=== PATIENT | female | born 1960 | race Caucasian/White ===

== ENCOUNTER 2017-07-09 19:26 | Emergency (ER) | payer OTHER ==
[~2017-07-09] VITALS: Ht 175.3 cm; Wt 73.1 kg
[2017-07-09] MEDS ORDERED: VALIUM5 MG PO (22:05)
[2017-07-09] MEDS ORDERED: NAPROXEN500 MG PO (22:05)
[2017-07-09] MEDS ORDERED: PERCOCET 5/31 TABLET PO (22:05)
[2017-07-09 22:37] VITALS: BP 133/62
== END 2017-07-09 22:38 | disposition home or self-care (01) ==
LOC: EME 19:26
DX: S16.1XXA Strain of muscle, fascia and tendon at neck level, initial encounter (principal); M25.511 Pain in right shoulder; V43.52XA Car driver injured in collision with other type car in traffic accident, initial encounter; F17.200 Nicotine dependence, unspecified, uncomplicated
CPT/HCPCS: 72040; 73030; 99281; 99283